=== PATIENT | female | born 1960 | race Caucasian/White ===

== ENCOUNTER 2018-03-15 00:17 | Emergency (ER) | payer BC ==
--- NOTE | 2018-03-15 08:45 | ULT ---
PRELIMINARY REPORT/[facility]/EMERGENTY AFTER-HOURS PROCEDURE US Abdomen Limited, Right Upper Quadrant CLINICAL HISTORY: 57 years old, female; Pain and signs and symptoms; Nausea and vomiting and other: Diarrhea; Abdominal pain; Other: Epigastric to ruq; Patient HX: Abd pain since Wednesday TECHNIQUE: Real-time ultrasound of the right upper quadrant with image documentation. COMPARISON: No relevant prior studies available. FINDINGS: Liver: The liver demonstrates a normal echotexture. Hepatopetal flow is demonstrated in the main port al vein. Gallbladder: Negative Claros's sign was reported by the under seal operator. No gallstones. Common bile duct: The extrahepatic bile duct diameter is 4.5 mm. No stones. No dilation. Pancreas: The visible portion of the pancreas is unremarkable. The pancreas is partially obscured by bowel gas. Right kidney: The right kidney measures 9.9 x 4.6 x 4.2 cm No stones. No hydronephrosis. Aorta: The visible portion of abdominal aorta is unremarkable. Inferior vena cava: The visible portion of the inferior vena cava is unremarkable. IMPRESSION: Unremarkable examination. Thank you for allowing us to participate in the care of your patient. Dictated and Authenticated by: Cullen Mooney MD 03/15/2018 2:51 AM Central Time ([place] & [place]) FINAL REPORT GALLBLADDER ULTRASOUND: Date: 03/15/18 HISTORY: Right upper quadrant pain. FINDINGS: Real-time imaging of the right upper quadrant shows a normal appearing gallbladder. Technologist repo rts a negative ultrasound Claros's sign. The common duct is 4-5 mm. Visualized liver parenchyma shows no focal abnormalities. Pancreas is partially obscured. The right kidney is normal in size and not o bstructed. IMPRESSION: Unremarkable gallbladder ultrasound. This report is in agreement with the preliminary report issued by [facility]. POS: [facility]
== END 2018-03-15 02:25 | disposition home or self-care (01) ==
LOC: ERS 00:17
DX: K29.70 Gastritis, unspecified, without bleeding (principal); Z71.6 Tobacco abuse counseling; E78.5 Hyperlipidemia, unspecified; I10 Essential (primary) hypertension; J45.909 Unspecified asthma, uncomplicated; F17.210 Nicotine dependence, cigarettes, uncomplicated; Z79.899 Other long term (current) drug therapy; Z79.82 Long term (current) use of aspirin
CPT/HCPCS: 76705; 99406

== ENCOUNTER 2023-10-30 12:16 | Emergency (ER) | payer BC ==
[2023-10-30 12:44] LABS: Hematocrit 50.1 % (36.0-47.0); Hemoglobin 16.4 g/dL (12.0-16.0); Mean Corpuscular HGB CONC 32.7 g/dL (32.0-36.0); Mean Corpuscular Hemoglobin 30.8 pg (27.0-31.0); Mean Platelet Volume 10.2 fL (7.4-10.4); Platelet Count 260 10x3/uL (130-400); RBC Distribution Width 13.7 % (11.5-14.5); Red Blood Cell (RBC) Count 5.33 mill/uL (4.20-5.40)
[2023-10-30 12:54] LABS: ALT (SGPT) 18 U/L (8-55); AST (SGOT) 19 U/L (5-34); Albumin 3.7 g/dL (3.4-4.8); Alkaline Phosphatase 99 U/L (40-110); Anion Gap 12 mmol/L (10-20); BUN (Urea Nitrogen) 13 mg/dL (9.8-20.1); Bilirubin, Total 0.8 mg/dL (0.2-1.2); Calc. Creatinine Clearance 0 mL/min (70-130); Calcium 9.9 mg/dL (7.8-10.44); Carbon Dioxide 28 mmol/L (23-31); Chloride 104 mmol/L (98-107); Estimated GFR 94; Globulin 3.7 g/dL (2.4-3.5); Glucose 96 mg/dL (80-115); Potassium 4.3 mmol/L (3.5-5.1); Protein, Total 7.4 g/dL (5.8-8.1); Sodium 140 mmol/L (136-145)
[2023-10-30 13:01] LABS: Troponin I Less than 0.010 ng/mL (< 0.028)
[2023-10-30 13:18] LABS: Eosinophils 2 % (0-10); Lymphocytes 46 % (21-51); Monocytes 8 % (0-10); Neutrophil 42 % (42-75); Platelet Adequacy Comment Platelets Normal; RBC Morphology Within Normal Limits; Reactive Lymphocytes 2 % (0-10)
[2023-10-30] MEDS ORDERED: Ondansetron PF 4 MG/2 ML Vial ONE (13:44)
[2023-10-30 13:52] LABS: Lipase 19 U/L (8-78); Magnesium 1.8 mg/dL (1.6-2.6)
[2023-10-30] MEDS ORDERED: Aspirin Chewable 81 MG TAB ONE (14:04)
[2023-10-30] MEDS ORDERED: Famotidine/PF 20 mg/2ml Vial ONE (14:05)
[2023-10-30] MEDS ORDERED: Iopamidol-370 76% 500 ML MDV (1 ML CHARGE) ONE (14:29)
[2023-10-30 14:54] LABS: Bacteria/HPF None Seen HPF (None Seen); Bilirubin Negative (Negative); Blood, Urine Negative (Negative); CAUTI Indications for Culture Pelvic or flank pain; Clarity Clear (Clear); Glucose, Urine (Dipstick) Normal (Negative); Ketone, Urine Negative (Negative); Leukocyte Negative Leu/uL (Negative); Nitrite Negative (Negative); Protein, Urine (Dipstick) Negative (Neg-Trace); RBC/HPF None Seen HPF (0-3); Specific Gravity, Urine 1.034 (1.002-1.036); Urobilinogen Normal mg/dL (Less than 2); WBC/HPF 0-3 HPF (0-3)
[2023-10-30 15:18] LABS: Urine Culture Reflex No No
== END 2023-10-30 15:51 | disposition home or self-care (01) ==
LOC: ERS 12:16
DX: K29.70 Gastritis, unspecified, without bleeding (principal); E78.00 Pure hypercholesterolemia, unspecified; I10 Essential (primary) hypertension; F17.210 Nicotine dependence, cigarettes, uncomplicated; Z75.3 Unavailability and inaccessibility of health-care facilities; Z79.899 Other long term (current) drug therapy; Z79.82 Long term (current) use of aspirin
CPT/HCPCS: 36415; 71046; 74177; 80053; 81001; 83690; 83735; 84484; 85025; 93005; 96374; 96375; J2405; Q9967; S0028